=== PATIENT | male | born 1935 | race Caucasian/White ===

== ENCOUNTER 2017-10-21 14:15 | Emergency (ER) | payer MEDICARE, OTHER ==
--- NOTE | 2017-10-21 14:40 | RAD ---
THREE VIEWS LEFT HAND: Comparison: None. History: Left hand injury with pain. FINDINGS: Three views left hand shows no evidence of acute fracture or dislocation. There are central erosions and joint space narrowing surrounding the interphalangeal joints of the fingers consistent with osteo arthritis. There is also narrowing and osteophyte formation in the first CMC joint consistent with os teoarthritis. No focal soft tissue swelling is seen. 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 POS: [facility]
[2017-10-21] MEDS ORDERED: Lidocaine 1% (PF) 30 ML VIAL ONE (16:00)
[2017-10-21] MEDS ORDERED: Adacel (T-DAP) 0.5 ML VIAL ONE (16:31)
== END 2017-10-21 16:48 | disposition home or self-care (01) ==
LOC: ERS 14:15
DX: S61.213A Laceration without foreign body of left middle finger without damage to nail, initial encounter (principal); W23.1XXA Caught, crushed, jammed, or pinched between stationary objects, initial encounter
CPT/HCPCS: 12001; 90471; 90715; J2001